=== PATIENT | female | born 2005 | race Caucasian/White ===

== ENCOUNTER 2025-05-14 10:01 | Observation (INO) | payer OTHER, SELFPAY ==
[2025-05-14] VITALS (8 sets, daily range): BP systolic 103–137; BP diastolic 58–72; PULSE 55–95; RESP 15–18; TEMP 36.2–36.8; O2SAT 98–100; BMI 30.7; BMI 32.5
--- NOTE | ~2025-05-14 | US_ITS ---
EXAMINATION: US FIRST TRIMESTER OB HISTORY: abd pain n/v TECHNIQUE: Endovaginal scanning was performed. FINDINGS: There is a single, live intrauterine . A 2.6 x 1.2 x 2.8 cm hypoechoic area is noted adjacent to the gestational sac, compatible with an implantation bleed. AUA = 8 weeks 2 days PRETTY(AUA) = 12/22/2025 CRL = 1.7 to cm Yolk Sac: seen FHR = 169 bpm Right ovary: The right ovary measures 3.4 x 1.7 x 2.4 cm unremarkable. Left ovary: The left ovary measures 3.4 x 1.9 x 1.8 cm and is unremarkable. Cul-de-sac: No free fluid US/US OB pelvic and transvaginal IMPRESSION: Single, live intrauterine of estimated gestational age 8 weeks, 2 days. Probable 2.6 x 1.2 x 2.8 cm implantation bleed. Follow-up is recommended. Electronically signed by: Bobby Harry MD 05/14/2025 12:39 PM EDT
--- NOTE | ~2025-05-14 | US_ITS ---
EXAMINATION: US APPENDIX TECHNIQUE: Ultrasound with graded compression was performed in the right lower quadrant. HISTORY: Right lower quadrant abdominal pain, asses for appendicitis COMPARISON: There are no prior studies available for comparison. FINDINGS: Appendix: The appendix is not identified. Free fluid: None Lymphadenopathy: None US/US appendix IMPRESSION: The appendix is not identified. The examination is non-diagnostic for appendicitis. If there is continued clinical suspicion for acute appendicitis, MRI could be obtained for further evaluation in this patient. Electronically signed by: Bobby Harry MD 05/14/2025 12:35 PM EDT
--- NOTE | 2025-05-14 10:23 | ED_ITS ---
HPI - Abdominal Pain General Chief Complaint: Abdominal Pain Stated Complaint: ABD PAIN,VOMITING NAUSEA,?LENGTH OF Time Seen by Provider: 05/14/25 10:04 Source: patient Mode of arrival: ambulatory Limitations: no limitations History of Present Illness ED Provider: LANDEN Moreno HPI narrative: This is a 20-year-old female [id number] medical history significant for hyperemesis gravidarum presents to the emergency department with severe diffuse abdominal pain, nausea, vomiting and overall feeling unwell for the past day. She tells me she woke up this morning feeling unwell and yesterday night she did not feel great either. She reports she has been vigorously vomiting over the past day. And nothing helps it. She tells me she did have hyperemesis with her previous however this 1 she has not been vomiting as much. She tells me she is approximately 5-8 weeks , does not have care is currently living in a longterm. Not taking vitamins. Denies fevers, chills, headache, vision changes, dizziness, chest pain, shortness breath, flank pain, vaginal discharge or bleeding changes in urinary or bowel habits. MD elicited complaint: abdominal pain Onset (ago): day(s) (1) Pain Consistency: constant Severity: moderate Related Data Allergies Allergy/AdvReac Type Severity Reaction Status Date / Time No Known Drug Allergies Allergy Unknown Verified 05/14/25 10:16 Review of Systems Review of Systems Yes all other systems are reviewed and are negative [facility] Past Medical History Attestation statement: The following information was validated with the patient. Source: old records reviewed and nursing notes reviewed Social History Social History Smoked in Last 30 Days: No Advance Directives: No Advance Directives Information Provided: No Physical Exam ED Exam Exam: Appearance: Alert.? Oriented X3.? No acute distress.? Head: Normocephalic, atraumatic, no step-offs or deformities Eyes: Pupils equal, round and reactive to light.? ENT: Pharynx normal.? Neck: Normal inspection.? Neck supple.? CVS: Normal heart rate and rhythm.? Pulses normal.? Respiratory: No respiratory distress.? Breath sounds normal.? Abdomen: Soft and nontender.? Skin: Skin warm and dry.? Normal skin color.? Normal skin turgor.? Extremities: No lower extremity edema.? No calf ttp. 5/5 strength to bilateral upper and lower extremities Neuro: Oriented X 3.? No motor deficit.? No sensory deficit. CN 2-12 intact Vital Signs: Vital Signs - 24 hr 05/14/25 10:08 05/14/25 12:00 Temperature 97.6 F 98.3 F Pulse Rate 55 58 Respiratory Rate 18 18 Blood Pressure 114/72 113/64 Pulse Oximetry 99 100 Oxygen Delivery Method Room Air Room Air BMI result Body Mass Index 30.7 Vital signs stable Const General: cooperative, ill appearing and tired appearing Course Reevaluation(s) Reevaluation #1: Patient's CBC 12.7 with neutrophil predominance 85.1 this is likely reactive in the setting of nausea and vomiting. Chemistry with no acute findings eating intervention. Beta hCG elevated 138,716. COVID, flu negative. Pelvic ultrasound is single live intrauterine with estimated gestational age 8 weeks 2 days probable 2.6 x 1.2 x 2.6 implantation bleed. Ultrasound of the appendix no appendix identified examination nondiagnostic for appendicitis the pain is not focal to the right lower quadrant. It is diffuse in nature making appendicitis less likely. B6 was not successful patient continued to vomit. I did give Reglan. Will wait and re-evaluate Time: 12:55 Reevaluation #2: Patient is still having significant nausea and vomiting. She is requesting Zofran she knows possible side effects and risks including defects she is aware of this and is willing to take Zofran at this time. Time: 13:48 Reevaluation #3: I spoke to [facility] given the fact she has an implantation bleed and refractory nausea and vomiting who would likely require admission however, they are closed or transfers at this time. Will try [facility] Time: 14:00 Additional Reevaluation(s): Spoke to Diana Garcia Blood Bank Manager at [facility] who tells me there. This can increase risks of miscarriage. Vaginal bleeding is possible. It is appropriate to treat nausea and vomiting here at [facility]. No intervention would be done there that would be different. Patient will be admitted to this facility. Patient aware. Medical Decision Making Medical Decision Making [facility] Narrative: 1025 20-year-old female presents with nausea, vomiting, abdominal pain x1 day. Reports she is 5-8 weeks unclear. Does not have care. Not taking vitamins. Physical exam patient appears unwell, actively vomiting. Diffuse abdominal tenderness. History and physical exam concerning for hyperemesis gravidarum versus threatened /miscarriage, intra-abdominal etiologies. Will rule out metabolic derangements, anemia. Will obtain ultrasound to confirm intrauterine as patient is unclear and it should be visible by 8 weeks. Also obtain labs, urine, hCG. Differential Diagnosis Differential Diagnoses: The differential diagnosis associated with the presentation includes (History and physical exam concerning for hyperemesis gravidarum versus threatened /miscarriage, intra-abdominal etiologies. Will rule out metabolic derangements, anemia.) Admission/Observation Consideration of admission/observation: Escalation of care including admission/observation considered Lab Data MDM Lab Attestation statement: I reviewed the patient's lab results. 05/14/25 10:31 05/14/25 10:31 Labs: Lab Results 05/14/25 05/14/25 05/14/25 Range/Units 10:31 12:45 13:29 WBC 12.7 H (4.8-10.8) X10*3/uL RBC 4.57 (4.20-5.50) X10*6/uL Hgb 14.3 (12.0-16.0) g/dl Hct 39.9 (37.0-47.0) % MCV 87.3 (80.0-98.0) fL MCH 31.3 (27.0-33.0) pg MCHC 35.8 H (31.0-35.0) g/dl RDW 13.0 (11.0-16.0) % Plt Count 251 (160-400) X10*3/uL MPV 10.8 (9.4-12.3) fL Immature Gran % (Auto) 0.4 (0.0-0.4) % Neut % (Auto) 85.1 H (45-73) % Lymph % (Auto) 11.2 L (20-40) % [place] % (Auto) 3.0 (2-11) % Eos % (Auto) 0.1 (0-4) % Baso % (Auto) 0.2 (0-2) % Lymph # (Auto) 1.4 (1.2-4.9) X10*3/uL [place] # (Auto) 0.4 (0.1-1.2) X10*3/uL Eos # (Auto) 0.0 (0.0-0.4) X10*3/uL Baso # (Auto) 0.0 (0.0-0.2) X10*3/uL Abs Immat Gran (auto) 0.05 H (0.00-0.03) X10*3/uL Absolute Neuts (auto) 10.8 H (2.0-8.3) x10*3/uL Absolute Nucleated RBC 0.000 (0.0-0.012) X10*3/uL Nucleated RBC % (auto) 0.0 (0.0-0.2) /100WBC Sodium 138 (135-145) mmol/L Potassium 3.4 (3.3-5.1) mmol/L Chloride 104 (96-108) mmol/L Carbon Dioxide 21 L (22-29) mmol/L Anion Gap 16 (12-20) BUN 7 L (9-16) mg/dL Creatinine 0.56 (0.5-1.4) mg/dL Estim Creat Clear Calc 139.9 Estimated GFR > 60 Random Glucose 127 H (60-115) mg/dL Calcium 9.7 (8.4-10.2) mg/dL Magnesium 1.9 (1.6-2.6) mg/dL Total Bilirubin 1.2 H (0.0-1.0) mg/dL AST 22 (5-31) U/L ALT 11 (0-31) U/L Alkaline Phosphatase 82 (39-117) U/L Total Protein 8.1 H (6.5-8.0) g/dL Albumin 5.1 H (3.5-5.0) g/dL Lipase 31 (8-78) U/L Beta HCG, Quant [id number] mIU/mL Urine Color Yellow Urine Appearance Clear Urine pH 6.0 (5.0-9.0) Ur Specific [place] 1.025 (1.005-1.025) Urine Protein Trace (Neg-Trace) mg/dL Urine Glucose (UA) Negative (Negative) mg/dL Urine Ketones >=160 (Negative) mg/dL Urine Blood Negative (Negative) Urine Nitrite Negative (Negative) Ur Leukocyte Esterase Negative (Negative) COVID-19 (GABRIELA) Negative (Negative) COVID-19 Clin Com See Note Influenza Type A (HANNAH) Negative (Negative) Influenza Type B (HANNAH) Negative (Negative) Influenza A & B Note See Note Medications Administered Discontinued Medications Generic Name Dose Route Start Last Admin Trade Name Freq PRN Reason Stop Dose Admin Sodium Chloride 1,000 mls @ 999 mls/hr 05/14/25 10:30 05/14/25 12:40 Ns IV 05/14/25 11:30 Infused .Q1H1M ADRIA Infusion Sodium Chloride 1,000 mls @ 999 mls/hr 05/14/25 13:15 05/14/25 13:26 Ns IV 05/14/25 14:15 999 mls/hr .Q1H1M ADRIA Administration Metoclopramide HCl 10 mg 05/14/25 11:34 05/14/25 11:48 Metoclopramide Hcl 10 Mg/2 Ml Vial IVPUSH 05/14/25 11:35 10 mg ONCE ONE Administration Ondansetron HCl 4 mg 05/14/25 13:47 05/14/25 13:52 Ondansetron Hcl 4 Mg/2 Ml Vial IVPUSH 05/14/25 13:48 4 mg ONCE ONE Administration Pyridoxine HCl 50 mg 05/14/25 10:16 05/14/25 11:23 Pyridoxine Hcl (Vitamin B6) 50 Mg Tablet PO 05/14/25 10:17 50 mg ONCE ONE Administration Critical Care Time Critical Care Time Critical Care Time: Yes Total Critical Care Time: 35 Attestation: I attest to this time spent taking care of the patient, obtaining history, physical, reviewing labs, imaging, treatment of patients condition +/- specialist/hospitalist consult +/- procedure Discharge Plan Discharge Clinical Impression: Abdominal pain, Confirmed intrauterine on ultrasound, Nausea & vomiting Patient Disposition: Admitted As Inpatient Print Language: Upper Sorbian
[2025-05-14 10:37] LABS: MANUAL DIFF FLAG NO
[2025-05-14 10:39] LABS: Hematocrit 39.9 % (37.0-47.0); Hemoglobin 14.3 g/dl (12.0-16.0); Imm Gran Abs Auto 0.05 X10*3/uL (0.00-0.03); Imm Gran Pct Auto 0.4 % (0.0-0.4); Lymphocytes Absolute Auto 1.4 X10*3/uL (1.2-4.9); Mean Corpuscular HGB Conc 35.8 g/dl (31.0-35.0); Mean Corpuscular Hemoglobin 31.3 pg (27.0-33.0); Mean Corpuscular Volume 87.3 fL (80.0-98.0); NRBC Abs Auto 0.000 X10*3/uL (0.0-0.012); NRBC Pct Auto 0.0 /100WBC (0.0-0.2); Platelet Count 251 X10*3/uL (160-400); Red Blood Count 4.57 X10*6/uL (4.20-5.50); White Blood Count 12.7 X10*3/uL (4.8-10.8)
[2025-05-14 11:07] LABS: Alanine Aminotransferase 11 U/L (0-31); Albumin Level 5.1 g/dL (3.5-5.0); Alkaline Phosphatase 82 U/L (39-117); Anion Gap 16 (12-20); Aspartate Amino Transferase 22 U/L (5-31); Blood Urea Nitrogen 7 mg/dL (9-16); Calcium 9.7 mg/dL (8.4-10.2); Carbon Dioxide 21 mmol/L (22-29); Chloride 104 mmol/L (96-108); Creatinine Clr Calc Pharmacy 139.9; Estimated Glomerular Filt Rate > 60; Lipase 31 U/L (8-78); Magnesium 1.9 mg/dL (1.6-2.6); Potassium 3.4 mmol/L (3.3-5.1); Sodium 138 mmol/L (135-145); Total Protein 8.1 g/dL (6.5-8.0)
--- NOTE | 2025-05-14 12:00 | PC.NURSE ---
Pt BIBA for increased N/V since early this AM. Pt reports she is approx 5-8 weeks and states she has a hx of HG with past pregnancies. Pt is alert and oriented, #20 placed to LAC. IVF and medications per MAR.
[2025-05-14 13:12] LABS: COVID-19 Test Negative (Negative); IDNOW Serial# 08D9AD1C
[2025-05-14 13:28] LABS: IDNOW Serial# 6674DD1D; Influenza B2 Negative (Negative)
[2025-05-14 13:45] LABS: Appearance Urine Clear; Glucose Urine UA Negative (Negative); PH 6.0 (5.0-9.0); Specific Gravity - Urine 1.025 (1.005-1.025)
--- NOTE | 2025-05-14 16:22 | P.HPHOSP_ITS ---
History of Present Illness Date of Service: 05/14/25 Attending physician on admission: Sandra Duran Chief Complaint: nausea and vomiting This is a 20-year-old female A3 with a past medical history of hyperemesis gravidarum who presents to the emergency department with nausea and vomiting. Her symptoms began early this morning she has had multiple episodes of vomiting, unable to take any p.o.. She has mild abdominal pain. In the emergency department she had ultrasound showing single live intrauterine estimated to be gestational age of 8 weeks and 2 days with a probable implantation bleed. The emergency room provider treated the patient with multiple doses of antiemetics with the patient continued to have nausea and vomiting. She they attempted to transfer the patient to [facility] however they are close for transfers. The ED provider discussed with medical provider at [facility] at [facility] who said that given implantation bleed there is vaginal bleeding possible and this can also increase the risk of miscarriage. But no intervention is required and she does not require transfer to any other hospital. They felt it was appropriate to keep the patient here at [place] and treat for nausea and vomiting. The patient was informed that there is no OB coverage and that her current condition does increase the risk for miscarriage and vaginal bleeding. She understands and wants to be admitted here for management of her nausea and vomiting. Review of Systems 2 Review of Systems: Yes all other systems are reviewed and are negative Constitutional: Constitutional: Denies chills and Denies fever(s) Cardiovascular: Cardiovascular: Denies chest pain Gastrointestinal: Gastrointestinal: Reports nausea and Reports vomiting PMFSH Social History Smoked in Last 30 Days: No Advance Directives: No Advance Directives Information Provided: No Meds Allergies Allergy/AdvReac Type Severity Reaction Status Date / Time No Known Drug Allergies Allergy Unknown Verified 05/14/25 10:16 Home Medications ?Medication ?Instructions ?Recorded ?Confirmed ?Last Taken ?Type cetirizine 10 mg tablet (Zyrtec) 10 mg PO DAILY PRN al bryanna 05/14/25 05/14/25 Unknown History vit no.95-ferrous 1 tab PO DAILY 05/14/25 Unknown History fumarate 28 mg-folic acid 800 mcg tablet () Physical Exam 2 Vital Signs and Narrative: Vital Signs: Last Vital Signs Temp 98.3 F 05/14/25 12:00 Pulse 68 05/14/25 16:10 Resp 15 05/14/25 16:10 BP 126/69 05/14/25 16:10 Pulse Ox 100 05/14/25 16:10 O2 Del Method Room Air 05/14/25 16:10 BMI result Body Mass Index 30.7 Const: General: alert and awake Nutritional Appearance: average body habitus Orientation/consciousness: patient oriented x3 Resp: Effort & Inspection: normal respiratory effort, able to speak in complete sentences, no respiratory distress and no use of accessory muscles Cardio: Rate: regular rate Neuro: General: patient oriented x3, moves all extremities and CN's II-XI intact bilaterally Results Labs 05/14/25 10:31 05/14/25 10:31 Labs: Laboratory Results - last 24 hr 05/14/25 05/14/25 05/14/25 10:31 12:45 13:29 MCV 87.3 MCH 31.3 MCHC 35.8 H RDW 13.0 Plt Count 251 MPV 10.8 Immature Gran % (Auto) 0.4 Neut % (Auto) 85.1 H Lymph % (Auto) 11.2 L [place] % (Auto) 3.0 Eos % (Auto) 0.1 Baso % (Auto) 0.2 Lymph # (Auto) 1.4 [place] # (Auto) 0.4 Eos # (Auto) 0.0 Baso # (Auto) 0.0 Abs Immat Gran (auto) 0.05 H Absolute Neuts (auto) 10.8 H Absolute Nucleated RBC 0.000 Nucleated RBC % (auto) 0.0 Anion Gap 16 Estim Creat Clear Calc 139.9 Estimated GFR > 60 Random Glucose 127 H Calcium 9.7 Magnesium 1.9 Total Bilirubin 1.2 H AST 22 ALT 11 Alkaline Phosphatase 82 Total Protein 8.1 H Albumin 5.1 H Lipase 31 Beta HCG, Quant [id number] Urine Color Yellow Urine Appearance Clear Urine pH 6.0 Ur Specific [place] 1.025 Urine Protein Trace Urine Glucose (UA) Negative Urine Ketones >=160 Urine Blood Negative Urine Nitrite Negative Ur Leukocyte Esterase Negative COVID-19 (GABRIELA) Negative COVID-19 Clin Com See Note Influenza Type A (HANNAH) Negative Influenza Type B (HANNAH) Negative Influenza A & B Note See Note Imaging Radiologist's Impressions: Impressions Appendix Ultrasound 05/14/25 11:28 IMPRESSION: The appendix is not identified. The examination is non-diagnostic for appendicitis. If there is continued clinical suspicion for acute appendicitis, MRI could be obtained for further evaluation in this patient. Electronically signed by: Bobby Harry MD 05/14/2025 12:35 PM EDT RP Pelvic/Transvag US 05/14/25 11:45 IMPRESSION: Single, live intrauterine of estimated gestational age 8 weeks, 2 days. Probable 2.6 x 1.2 x 2.8 cm implantation bleed. Follow-up is recommended. Electronically signed by: Bobby Harry MD 05/14/2025 12:39 PM EDT RP Assessment and Plan (1) Nausea & vomiting: Status: Acute Plan This is a 20-year-old A3 with history of hyperemesis gravidarum currently 8 weeks presents to the emergency department with nausea and vomiting Intractable Nausea and vomiting symptomatic support with IVF, IV antiemetics clear liquids, advance as tolerated single gestation with implantation bleed per OB at [facility] no further work up or management necessary at this time. this can increase risk for miscarriage outpatient follow up with OB vitamins when able to tolerate PO monitor for vaginal bleeding denies any chronic medical conditions. dvt ppx - mechanical devices Quality Stroke Does the patient have a stroke diagnosis?: No VTE Prior VTE?: No VTE Risk Level:: Medical - low VTE Device Contraindication: N/A - Device Ordered VTE Drug Contraindication: Treatment Not Indicated
--- NOTE | 2025-05-14 16:37 | PHA.MEDREC ---
Pharmacy Consult ? Medication Reconciliation Pharmacy has completed the medication reconciliation.Med rec complete, spoke to patient, no pharmacy claim history
[2025-05-14] MEDS: Lactated Ringers 1,000 ML 100 ML IVCONT (17:03)
--- NOTE | 2025-05-14 17:07 | HO.NURTONUR ---
Arslan is a 20 yo female, full code with NKDA who was BIBA for abd pain/N/V/D. Pt is approx 8 weeks , has had Hyperemisis with previous . Plans for pt to be admitted for tx of n/v. A/O x 3, ambulates independently with steady gait. #20 to LAC, IVF per MAR. Tolerating CLD. Given 2L NS, zofran and reglan in ED.
[2025-05-15] VITALS (7 sets, daily range): BP systolic 95–125; BP diastolic 54–79; PULSE 60–83; RESP 14–18; TEMP 36.3–37.2; O2SAT 98–100
[2025-05-15] MEDS: Lactated Ringers 1,000 ML 100 ML IVCONT ×3 (05:16→22:08)
--- NOTE | 2025-05-15 12:09 | HO.PM.IMPN ---
Subjective Subjective Date of Service: 05/15/25 Interval History: Endorses nausea today. Persistent. No vomiting so far today. No abdominal pain, no bleeding Review of Systems Review of Systems: Yes all other systems are reviewed and are negative Physical Exam Exam: Exam: General: A&O x3, oriented to time place person and situation, comfortable, no pain Cardiac: S1, S2 auscultated with no S3/4, no MRG. Well perfused. Respiratory: Normal breath sounds auscultated throughout all lung zones, without wheezing, rales. Normal rate. GI/ : No abdominal pain on palpation, no masses or distentions. MSK: Normal ambulation without pain at bony prominences or musculature Neurological: Normal neurological examination on overview, without obvious CN II-XII abnormalities. Vital Signs: Vital Signs: Last Vital Signs Temp 97.9 F 05/15/25 11:32 Pulse 70 05/15/25 11:32 Resp 14 05/15/25 11:32 BP 118/65 05/15/25 11:32 Pulse Ox 100 05/15/25 11:32 O2 Del Method Room Air 05/15/25 11:32 BMI result Body Mass Index 32.5 Objective Data Active Medications Acetaminophen (Acetaminophen 325 Mg Tablet) 650 mg PO Q6H PRN PRN Reason: Pain, Mild 1-3,fever,headache Calcium Carbonate (Calcium Carbonate 750 Mg Tab.Chew) 750 mg PO Q4H PRN PRN Reason: Heartburn Docusate Sodium (Docusate Sodium 100 Mg Capsule) 100 mg PO DAILY PRN PRN Reason: constipation Lactated Ringer's (Lr) 1,000 mls @ 100 mls/hr IVCONT .Q10H ADRIA Last Admin: 05/15/25 05:16 Dose: 100 mls/hr Documented By: MARINA Ondansetron HCl (Ondansetron Hcl 4 Mg/2 Ml Vial) 8 mg IVPUSH Q6H PRN PRN Reason: Nausea and Vomiting Last Admin: 05/15/25 09:28 Dose: 8 mg Documented By: EVA Prochlorperazine Maleate (Prochlorperazine Maleate 5 Mg Tablet) 5 mg PO QID PRN PRN Reason: Nausea and Vomiting Last Admin: 05/15/25 09:56 Dose: 5 mg Documented By: EVA Pyridoxine HCl (Pyridoxine Hcl (Vitamin B6) 50 Mg Tablet) 25 mg PO Q8H PRN PRN Reason: nausea and vomiting Sodium Chloride (0.9 % Sodium Chloride Flush 3 Ml Syringe) 3 ml IVFLUSH QSHIFT ADRIA Last Admin: 05/15/25 07:21 Dose: Not Given Documented By: EVA Non-Admin Reason: IV Running Labs 05/14/25 10:31 05/14/25 10:31 Labs: Laboratory Results - last 24 hr 05/14/25 05/14/25 12:45 13:29 Urine Color Yellow Urine Appearance Clear Urine pH 6.0 Ur Specific [place] 1.025 Urine Protein Trace Urine Glucose (UA) Negative Urine Ketones >=160 Urine Blood Negative Urine Nitrite Negative Ur Leukocyte Esterase Negative COVID-19 (GABRIELA) Negative COVID-19 Clin Com See Note Influenza Type A (HANNAH) Negative Influenza Type B (HANNAH) Negative Influenza A & B Note See Note Assessment and Plan (1) Nausea & vomiting: Status: Acute (2) Abdominal pain: Status: Acute (3) Confirmed intrauterine on ultrasound: Status: Acute (4) Hyperemesis gravidarum: Status: Acute Plan 20-year-old A3 with history of hyperemesis gravidarum, currently 8 weeks gestation presents to the emergency department with nausea and vomiting, admitted for medical management of hyperemesis gravidarum. Hyperemesis gravidarum Intractable nausea and vomiting PLAN - supportive IV fluids - ondansetron 8 mg t.i.d. p.r.n. - prochlorperazine 5 mg q.i.d. p.r.n. - pyridoxine 25 mg q.i.d. p.r.n. - resolve N/V, followed by prescription of pyridoxine/doxylamine (vipulsta) outpatient - follow up with outpatient OBGYN Single gestation , 8 weeks Implantation bleed Mild hematoma identified on ultrasonography; remains viable with heart rate identified 160 bpm. Per OB at [facility], no further workup or management necessary at this time There is an understanding that this can increase the risk for miscarriage PLAN - follow up outpatient OBGYN - vitamins - monitor for vaginal bleeding [employer] - VTE: SCDs - CODE STATUS: Full code - DIET: Regular Total time managing care of this patient today: 35 minutes. Quality Stroke Does the patient have a stroke diagnosis?: No VTE Prior VTE?: No VTE Risk Level:: Medical - low VTE Device Contraindication: N/A - Device Ordered VTE Drug Contraindication: Treatment Not Indicated
--- NOTE | 2025-05-15 16:31 | MHC.CM.PN ---
PT REPORTS SHE HAS A BED AT THE [facility] SHE IS INDEPENDENT WITH CARE/MOBILITY DECLINES A HCP NO PCP-BROCHURE PROVIDED OBSERVATION NOTICE DELIVERED DCP: RETURN TO [facility]-WILL NEED DC NOTE BOYFRIEND TO TRANSPORT
[2025-05-15] MEDS: 0.9 % Sodium Chloride Flush 3 ML SYRINGE IVFLUSH (22:08)
[2025-05-16 03:19] VITALS: BP 115/64; PULSE 67; RESP 18; TEMP 36.2; O2SAT 98
--- NOTE | 2025-05-16 03:49 | PC.NURSE ---
pt c/o nausea asking for po compazine. prn comapzine given [id number] with pt reporting 15 min later that pt still with nausea and now have vomitted the compazine. prn zofran offered and given at 0348. will cont to monitor
--- NOTE | 2025-05-16 06:49 | MHC.PIE ---
p; 0330; pt c/o nausea, prn po comazine given with little to no effect with pt reporting vomiting out med 15min later. prn iv zofran given with pt cont to c/o n/v i; dr golden notified. new order compazine iv now, benadryl iv now e; pt fell asleep? pt now awake c/o nausea once again with now c/o hearburn. iv compazine and iv benadryl given with prn tums. will cont to monitor
[2025-05-16] MEDS: Lactated Ringers 1,000 ML 100 ML IVCONT (06:55)
[2025-05-16 07:15] VITALS: BP 96/53; PULSE 68; RESP 12; TEMP 37.1; O2SAT 99
[2025-05-16 09:37] LABS: Anion Gap 11 (12-20); Blood Urea Nitrogen 5 mg/dL (9-16); Calcium 9.2 mg/dL (8.4-10.2); Carbon Dioxide 23 mmol/L (22-29); Chloride 107 mmol/L (96-108); Creatinine Clr Calc Pharmacy 146.7; Estimated Glomerular Filt Rate > 60; Potassium 3.1 mmol/L (3.3-5.1); Sodium 138 mmol/L (135-145)
--- NOTE | 2025-05-16 15:12 | P.DS_ITS ---
DS: Providers Provider Date of Service: 05/16/25 Date of admission: 05/14/25 16:17 Date of discharge: 05/16/25 Primary care physician: Leidy Physician DS: Diagnosis Discharge Diagnosis (1) Nausea & vomiting: Status: Acute (2) Abdominal pain: Status: Acute (3) Confirmed intrauterine on ultrasound: Status: Acute (4) Hyperemesis gravidarum: Status: Acute DS: Summary Hospital Course Hospital Course: From admission HPI: Date of Service: 05/14/25 Attending physician on admission: Sandra Duran Chief Complaint: nausea and vomiting This is a 20-year-old female A3 with a past medical history of hyperemesis gravidarum who presents to the emergency department with nausea and vomiting. Her symptoms began early this morning she has had multiple episodes of vomiting, unable to take any p.o.. She has mild abdominal pain. In the emergency department she had ultrasound showing single live intrauterine estimated to be gestational age of 8 weeks and 2 days with a probable implantation bleed. The emergency room provider treated the patient with multiple doses of antiemetics with the patient continued to have nausea and vomiting. She they attempted to transfer the patient to [facility] however they are close for transfers. The ED provider discussed with medical provider at [facility] at [facility] who said that given implantation bleed there is vaginal bleeding possible and this can also increase the risk of miscarriage. But no intervention is required and she does not require transfer to any other hospital. They felt it was appropriate to keep the patient here at [facility] and treat for nausea and vomiting. The patient was informed that there is no OB coverage and that her current condition does increase the risk for miscarriage and vaginal bleeding. She understands and wants to be admitted here for management of her nausea and vomiting. Hospital course Pt was admitted to the hospital for hyperemesis gravidarum and treated with antiemetics to good effect. Patient's symptoms eventually subsided and diet was slowly advanced. At time of discharge pt is asymptomatic with nausea and vomiting well-controlled, and able to tolerate full diet. Potassium today was noted to be mildly low and was repleted. Hospital stay was otherwise unremarkable. No vaginal bleeding noted. Pt will be sent home on ondansetron 8 mg disintegrating tablets Q 8 hours and promethazine 25mg suppository q6h as pt reports these have helped during previous . She should resume all other home meds. for single gestation with implantation bleed per OB at [facility] no further work up or management necessary at this time. this can increase risk for miscarriage outpatient follow up with OB vitamins If vaginal bleeding returns, return to ED Time Attestation Discharge Coordination Time (in mins): 35 Quality: Safe Use of Opioids Does Pt have an Active Cancer Diagnosis on the Problem List?: No Quality: Stroke Does the patient have a stroke diagnosis?: No Physical Exam Exam: Exam: General: AOx3, no acute distress Resp: CTA bilaterally CVS: S1, S2, RRR GI: +BS, NT, no distention Skin: Warm, dry Neuro: Cranial nerves II-XII grossly intact bilaterally. Motor grossly intact bilaterally Extremities: No edema Psych: Appropriate affect Vital Signs: Vital Signs: Last Vital Signs Temp 98.7 F 05/16/25 07:15 Pulse 68 05/16/25 07:15 Resp 12 05/16/25 07:15 BP 96/53 L 05/16/25 07:15 Pulse Ox 99 05/16/25 07:15 O2 Del Method Room Air 05/16/25 07:15 BMI result Body Mass Index 32.5 DS: Data Data Completed and Pending Labs on day of discharge: Laboratory Results - last 24 hr 05/16/25 05/16/25 08:46 09:09 Hold Purple Top SEE NOTE Sodium 138 Potassium 3.1 L Chloride 107 Carbon Dioxide 23 Anion Gap 11 L BUN 5 L Creatinine 0.55 Estim Creat Clear Calc 146.7 Estimated GFR > 60 Random Glucose 93 Calcium 9.2 Discharge Plan Discharge Anticipated Discharge Date/Time: 05/16/25 14:49 Patient Disposition: Home, Self-Care Referrals: Physician,None [Primary Care Provider, Medical] - 1 Week Discharge Medications: New promethazine 25 mg suppository 25 mg FL Q6H PRN (Reason: nausea and vomiting) Qty: 12 0RF Rx Instructions: Take one suppository per rectum every 6 hours as necessary for nausea and vomiting. ondansetron 8 mg tablet,disintegrating 8 mg PO Q8H Qty: 30 0RF Continued cetirizine [Zyrtec] 10 mg Tablet 10 mg PO DAILY PRN (Reason: allergies) PNV no.95-ferrous fumarate-FA [] 28 mg iron- 800 mcg Tablet 1 tab PO DAILY Discharge Orders: Discharge Order (Routine); Ordered 05/16/25 Ordered By: Adeline Martinez Activity on Discharge: As tolerated Stand Alone Forms: Patient Portal Discharge page Print Language: Lebanese Care Plan Goals: See below Health Concerns: Intractable nausea and vomiting Hyperemesis gravidarum Electrolyte abnormalities Plan of Treatment: You were admitted to the hospital for intractable nausea and vomiting in the setting of 1st trimester intrauterine that is complicated with implantation bleed. OB at [facility] was contacted who indicated there was no further workup or management necessary at this time and did not need transferred to a different facility. You were treated here with antiemetics with good effect. Diet was slowly advanced and your currently able to tolerate a full diet without nausea or vomiting. He will be discharged home on antiemetics and for close outpatient follow up with Obstetrics. -- take ondansetron 8 mg disintegrating tablet sublingually as necessary every 8 hours for nausea/vomiting -- take promethazine suppository per rectum every 6 hours as necessary for nausea/vomiting -- implantation bleeding can increase risk for miscarriage; follow up outpatient with your OB -- resume all other home medications, including vitamin Assessment: See discharge summary Patient Instructions: Ondansetron (By mouth) (Zofran, Zofran ODT, Zuplenz), Promethazine (Into the rectum)
[2025-05-16 15:31] VITALS: BP 127/59; PULSE 75; RESP 14; TEMP 36.9; O2SAT 99
[2025-05-16] MEDS: Potassium Chloride ER 20 MEQ TAB.ER.PRT PO (15:41)
--- NOTE | 2025-05-16 17:08 | MHC.CM.PN ---
PT DISCHARGED BACK TO THE [facility] TODAY VIA PRIVATE TRANSPORT
== END 2025-05-16 15:51 | disposition home or self-care (01) ==
LOC: HO.ED 15:55 → HO.EDOVER 16:20 → HO.S3 16:54
PROVIDERS: Physician Assistant; Admitting Provider Physician Assistant Medical; Emergency Provider Emergency Medicine Emergency Medical Services; Visit Provider Student in an Organized Health Care Education/Training Program
DX: O21.0 Mild hyperemesis gravidarum (principal); O20.9 Hemorrhage in early pregnancy, unspecified; Z3A.08 8 weeks gestation of pregnancy; R10.31 Right lower quadrant pain
CPT/HCPCS: 36415; 76705; 76801; 76817; 80048; 80053; 81003; 83690; 83735; 84702; 85025; 87502; 87635; 96361; 96374; 96375; 96376; 99221; 99285; J0737; J1200; J2405; J2765; J7120

== ENCOUNTER → 2025-05-14 10:15 | Outpatient (BNV) | payer OTHER, SELFPAY | PROVIDERS: Emergency Provider Emergency Medicine Emergency Medical Services; Visit Provider Radiology Diagnostic Radiology | DX: O26.891 Other specified pregnancy related conditions, first trimester (principal); Z3A.08 8 weeks gestation of pregnancy; R10.31 Right lower quadrant pain | CPT/HCPCS: 76705; 76801; 76817 ==

== ENCOUNTER → 2025-05-14 16:17 | Outpatient (BNV) | payer OTHER, SELFPAY | PROVIDERS: Admitting Provider Physician Assistant Medical; Emergency Provider Emergency Medicine Emergency Medical Services; Visit Provider Physician Assistant Medical | DX: O21.0 Mild hyperemesis gravidarum (principal); R10.9 Unspecified abdominal pain; Z34.90 Encounter for supervision of normal pregnancy, unspecified, unspecified trimester | CPT/HCPCS: 99239 ==

== ENCOUNTER 2025-06-16 18:33 | Emergency (ER) | payer OTHER, SELFPAY ==
[2025-06-16 18:37] VITALS: BP 129/84; PULSE 110; RESP 20; TEMP 36.9; O2SAT 99; BMI 29.2
--- NOTE | 2025-06-16 18:37 | ED_ITS ---
HPI - General Adult General Chief complaint: Fever Stated complaint: fever Time Seen by Provider: 06/16/25 22:07 Source: patient, RN notes reviewed and old records reviewed Mode of arrival: ambulatory Limitations: no limitations History of Present Illness ED Provider: Barbara TREVINO narrative: 20-year-old female presents for evaluation of upper respiratory symptoms. She reports fevers, chills, cough and sore throat for the last 2 days. Her 1-year-old son has similar symptoms. The patient reports feeling generally unwell. She had a D&C due to an elective 3 weeks ago. She initially had some abdominal cramping and vaginal bleeding but this has subsided. Denies any current abdominal pelvic pain. She reports she was recently tested for STIs and was negative. Denies any UTI symptoms. Related Data Home Medications ?Medication ?Instructions ?Recorded ?Confirmed cetirizine 10 mg tablet (Zyrtec) 10 mg PO DAILY PRN al lergies 05/14/25 05/14/25 vit no.95-ferrous 1 tab PO DAILY 05/14/25 fumarate 28 mg-folic acid 800 mcg tablet () Previous Rx's ?Medication ?Instructions ?Recorded ondansetron 8 mg disintegrating 8 mg PO Q8H #30 tabs 0 05/16/25 tablet promethazine 25 mg rectal 25 mg IL Q6H PRN nausea and 05/16/25 suppository vomiting #12 ea cetirizine 5 mg-pseudoephedrine ER 1 tab PO Q12H PRN n layla congestion 06/16/25 120 mg tablet,extended #14 tabs release,12hr (Zyrtec-D) Allergies Allergy/AdvReac Type Severity Reaction Status Date / Time No Known Drug Allergies Allergy Unknown Verified 06/16/25 18:40 Review of Systems 2 Constitutional: Constitutional: Reports body ache(s), Reports chills, Reports fever(s), Denies headache(s), Reports lethargy and Reports malaise Eyes: Eyes: Denies blurry vision ENT: Denies headache(s), Reports nasal congestion, Reports sore throat and Denies throat swelling Cardiovascular: Cardiovascular: Denies chest pain and Denies dyspnea on exertion Respiratory: Respiratory: Reports cough and Denies dyspnea on exertion Gastrointestinal: Gastrointestinal: Denies abdominal pain, Denies nausea and Denies vomiting Musculoskeletal: Musculoskeletal: Denies back pain Integumentary/Breasts: Skin/Breast: Denies rash Neurologic: Denies headache(s) Psychiatric: Psychiatric: Denies anxiety Allergic/Immunologic: Allergic/Immunologic: Denies throat swelling PMFSH Past Medical History Medical History (Updated 06/16/25 @ 22:32 by Mino Jimenez) Hyperemesis gravidarum Confirmed intrauterine on ultrasound Social History Social History Household Members: Children Housing: Other Do you presently have visiting nurse or other home services: No Patient Tobacco Use Status: Never used Tobacco Second Hand Smoke Exposure: No Advance Directives: No Advance Directives Information Provided: Yes service: No Physical Exam ED Vital Signs: Vital Signs - 24 hr 06/16/25 18:37 Temperature 98.4 F Pulse Rate 110 H Respiratory Rate 20 Blood Pressure 129/84 Pulse Oximetry 99 Oxygen Delivery Method Room Air BMI result Body Mass Index 29.2 Const General: healthy appearing, comfortable, no acute distress, alert and awake Nutritional Appearance: well nourished Orientation/consciousness: patient oriented x3 HENMT Head: Yes normocephalic and Yes atraumatic Throat: Yes posterior oropharynx normal Eyes Eyelids: Yes eyelids normal Conjunctivae: conjunctivae normal Sclerae: sclerae normal Corneas: corneas normal Pupils: Equal, round and reactive pupils present EOM: EOMs intact bilaterally Neck Neck: Yes full ROM Resp Effort & Inspection: normal respiratory effort, able to speak in complete sentences, no audible wheezes and not labored Auscultation: clear to auscultation bilaterally Cardio Rate: regular rate Rhythm: regular rhythm GI Inspection: No distended Palpation (GI): Soft to palpation, not firm, nontender, no guarding and not rigid Skin General skin exam: no rashes or lesions noted and elasticity normal Neuro General: patient oriented x3 Cranial nerves: Yes Equal, round and reactive pupils present and Yes Bilaterally intact EOM present Cognition (Neuro): normal cognition Extrem Other: Moving all extremities well without any obvious deformities Course Course Course Narrative: This is a Rapid Medical Examination (RME) performed by Manan Alvarez PA-C in triage. Full HPI, ROS, assessment and treatment plan per primary provider in the Main ED. Hx: 20 yo F here for eval of fever x2 days. TMAX 101.4F today. reports nasal congestion, dry cough, sore throat, headache. admits son is ill as well. took tylenol around 0700 today. hx surgical 3-4 wks ago, has had mild vaginal bleeding since. admits to clots recently was supposed to f/u with [facility] however has not. Plan: labs, viral/strep swabs Medical Decision Making Medical Decision Making [facility] Narrative: 20-year-old female presents for evaluation of viral symptoms with cough, congestion, sore throat. She has subjective fevers and chills but is afebrile in the emergency department she has no leukocytosis, no significant anemia, no left shift. Chemistries are without any concerning abnormalities. Her physical exam is reassuring, lungs are clear to auscultation. She has no abdominal tenderness on exam. I have a very low suspicion for a complication from her recent D and C that was 3 weeks ago. Given that her son has similar symptoms her symptoms are most likely related to a virus as well. We will discharge with symptomatic treatment only Differential Diagnosis Differential Diagnoses: The differential diagnosis associated with the presentation includes upper respiratory infection Viral syndrome Endometritis less likely COVID-19 Influenza Allergies Lab Data [facility] Lab Attestation statement: I reviewed the patient's lab results. as above 06/16/25 18:49 06/16/25 18:49 Labs: Lab Results 06/16/25 Range/Units 18:49 WBC 7.9 (4.8-10.8) X10*3/uL RBC 4.01 L (4.20-5.50) X10*6/uL Hgb 12.2 (12.0-16.0) g/dl Hct 36.4 L (37.0-47.0) % MCV 90.8 (80.0-98.0) fL MCH 30.4 (27.0-33.0) pg MCHC 33.5 (31.0-35.0) g/dl RDW 13.8 (11.0-16.0) % Plt Count 360 D (160-400) X10*3/uL MPV 9.6 (9.4-12.3) fL Immature Gran % (Auto) 0.4 (0.0-0.4) % Neut % (Auto) 70.4 (45-73) % Lymph % (Auto) 18.6 L (20-40) % [place] % (Auto) 8.9 (2-11) % Eos % (Auto) 1.3 (0-4) % Baso % (Auto) 0.4 (0-2) % Lymph # (Auto) 1.5 (1.2-4.9) X10*3/uL [place] # (Auto) 0.7 (0.1-1.2) X10*3/uL Eos # (Auto) 0.1 (0.0-0.4) X10*3/uL Baso # (Auto) 0.0 (0.0-0.2) X10*3/uL Abs Immat Gran (auto) 0.03 (0.00-0.03) X10*3/uL Absolute Neuts (auto) 5.6 (2.0-8.3) x10*3/uL Absolute Nucleated RBC 0.000 (0.0-0.012) X10*3/uL Nucleated RBC % (auto) 0.0 (0.0-0.2) /100WBC Sodium 140 (135-145) mmol/L Potassium 3.5 (3.3-5.1) mmol/L Chloride 110 H (96-108) mmol/L Carbon Dioxide 20 L (22-29) mmol/L Anion Gap 14 (12-20) BUN 5 L (9-16) mg/dL Creatinine 0.67 (0.5-1.4) mg/dL Estim Creat Clear Calc 114.1 Estimated GFR > 60 Random Glucose 94 (60-115) mg/dL Calcium 9.7 (8.4-10.2) mg/dL Magnesium 2.1 (1.6-2.6) mg/dL Total Bilirubin 0.6 (0.0-1.0) mg/dL AST 23 (5-31) U/L ALT 19 (0-31) U/L Alkaline Phosphatase 78 (39-117) U/L Total Protein 8.2 H (6.5-8.0) g/dL Albumin 5.2 H (3.5-5.0) g/dL Beta HCG, Quant 87 mIU/mL COVID-19 (GABRIELA) Negative (Negative) COVID-19 Clin Com See Note Influenza Type A (HANNAH) Negative (Negative) Influenza Type B (HANNAH) Negative (Negative) Influenza A & B Note See Note S. pyogenes GrpA HANNAH Negative (Negative) Discharge Plan Discharge Clinical Impression: Viral infection Patient Disposition: Home, Self-Care Instructions: Viral Syndrome (ED) Additional Instructions: your blood work was reassuring. Your viral swabs are negative in you tested negative for strep throat as well. You likely still have a virus similar to your son you may use Zyrtec D as needed for congestion. Use ibuprofen or Tylenol as needed for fevers or body aches. Follow up with your primary doctor, return for new or worsening symptoms Prescriptions: New cetirizine-pseudoephedrine [Zyrtec-D] 5-120 mg tablet extended release 12 hr 1 tab PO Q12H PRN (Reason: nasal congestion) Qty: 14 0RF No Action cetirizine [Zyrtec] 10 mg Tablet 10 mg PO DAILY PRN (Reason: allergies) PNV no.95-ferrous fumarate-FA [] 28 mg iron- 800 mcg Tablet 1 tab PO DAILY promethazine 25 mg suppository 25 mg IL Q6H PRN (Reason: nausea and vomiting) Qty: 12 0RF Rx Instructions: Take one suppository per rectum every 6 hours as necessary for nausea and vomiting. ondansetron 8 mg tablet,disintegrating 8 mg PO Q8H Qty: 30 0RF Stand Alone Forms: Work/School Release Print Language: Macedonian
[2025-06-16 19:04] LABS: MANUAL DIFF FLAG NO
[2025-06-16 19:08] LABS: Hematocrit 36.4 % (37.0-47.0); Hemoglobin 12.2 g/dl (12.0-16.0); Imm Gran Abs Auto 0.03 X10*3/uL (0.00-0.03); Imm Gran Pct Auto 0.4 % (0.0-0.4); Lymphocytes Absolute Auto 1.5 X10*3/uL (1.2-4.9); Mean Corpuscular HGB Conc 33.5 g/dl (31.0-35.0); Mean Corpuscular Hemoglobin 30.4 pg (27.0-33.0); Mean Corpuscular Volume 90.8 fL (80.0-98.0); NRBC Abs Auto 0.000 X10*3/uL (0.0-0.012); NRBC Pct Auto 0.0 /100WBC (0.0-0.2); Platelet Count 360 X10*3/uL (160-400); Red Blood Count 4.01 X10*6/uL (4.20-5.50); White Blood Count 7.9 X10*3/uL (4.8-10.8)
[2025-06-16 19:18] LABS: IDNOW Serial# 55D5AD1C; Strep A Nucleic Acid Negative (Negative)
[2025-06-16 19:23] LABS: Alanine Aminotransferase 19 U/L (0-31); Albumin Level 5.2 g/dL (3.5-5.0); Alkaline Phosphatase 78 U/L (39-117); Anion Gap 14 (12-20); Aspartate Amino Transferase 23 U/L (5-31); Blood Urea Nitrogen 5 mg/dL (9-16); Calcium 9.7 mg/dL (8.4-10.2); Carbon Dioxide 20 mmol/L (22-29); Chloride 110 mmol/L (96-108); Creatinine Clr Calc Pharmacy 114.1; Estimated Glomerular Filt Rate > 60; Magnesium 2.1 mg/dL (1.6-2.6); Potassium 3.5 mmol/L (3.3-5.1); Sodium 140 mmol/L (135-145); Total Protein 8.2 g/dL (6.5-8.0)
[2025-06-16 19:27] LABS: COVID-19 Test Negative (Negative); IDNOW Serial# 58CA691E
[2025-06-16 19:30] LABS: IDNOW Serial# 08D9AD1C; Influenza B2 Negative (Negative)
[2025-06-16 23:00] VITALS: BP 127/83; PULSE 103; RESP 16; TEMP 36.4; O2SAT 98
[2025-06-16 23:07] VITALS: BP 127/83; PULSE 103; RESP 16; TEMP 36.4; O2SAT 98
== END 2025-06-16 23:08 | disposition home or self-care (01) ==
PROVIDERS: Physician Assistant Medical; Emergency Provider Student in an Organized Health Care Education/Training Program
DX: B34.9 Viral infection, unspecified (principal)
CPT/HCPCS: 36415; 80053; 83735; 84702; 85025; 87502; 87635; 87651; 99283